=== PATIENT | male | born 1925 | race Caucasian/White ===

== ENCOUNTER 2016-02-27 13:30 | Day surgery (SDC) | payer MEDICARE ==
[~2016-02-27] VITALS: Ht 182.9 cm; Wt 79.4 kg
--- NOTE | 2016-02-27 08:39 | PCM.HPANE ---
Patient Data Surgeon Admitting Provider: Attending Provider:Latesha Perez MD Primary Care Physician:Joselo Davila MD Other Provider:Gabbie Carmichael Anesthesia Reason for Visit Dysphagia Ht/WT & BMI Body Mass Index Allergies Coded Allergies: No Known Allergies (Verified , 02/26/16) Past Anesthesia History Anesthesia History: Denies:: Anesthesia Reactions, Fam Anesthesia Reaction, Fam Malignant Hypertherm, Malignant Hyperthermia Diabetes History Hx Diabetes?: No MRSA MRSA: No Medications Blood Thinner: Coumadin Hypertension Medication: No Home Meds Incl Beta Zelalem: No Reported Medications Aspirin 325 Mg [id number] Mg PO DAILY #1 BOTTLE 02/27/16 Docusate Calcium (Stool Softener)240 Mg [id number] Mg PO BID PRN For Constipation 02/26/16 Diltiazem ER (Cartia XT)120 Mg Cap.er.22l729 Mg PO DAILY 06/26/15 [place] Carbonate 300 Mg [id number] Mg PO TID 02/23/14 Discontinued Reported Medications Multivitamin (Multivitamins)1 Each Capsule1 Each PO DAILY 02/26/16 Omeprazole (Prilosec)20 Mg Capcr20 Mg PO DAILY 06/26/15 Warfarin Sodium 5 Mg Tablet5 Mg PO DAILY 06/26/15 Acetaminophen 500 Mg Tablet1,000 Mg PO BID 06/26/15 Discontinued Scripts Hydrocortisone Acetate (Anucort-Hc)25 Mg Supp.rect25 Mg RECTAL BID #20 Prov:Gee Sauceda MD 06/29/15 History History of ENT Problems?: No HEENT History: Positive for:: Cataracts (Removed) Denies:: Dysphagia Sinus Problem Hx of Heart Problems?: Yes Cardiovascular History: Denies:: Cardiac Surgery Chest Pain Congestive Heart Failure Edema Heart Murmur Hypertension Irregular Heartbeat Pacemaker Thrombophlebitis Hx of Respiratory Problem?: No Respiratory History: Positive for:: Dyspnea (With exertion) Denies:: Asthma COPD Chest Surgery Emphysema Hemoptysis Pneumonia Tuberculosis Hx Neurologic Problems?: Yes Neurological History: Positive for:: CVA (Several TIA) Denies:: Alzheimer's Disease Dementia Dizziness Headaches Parkinson's Disease Seizures Hx of GI Problems?: Yes Gastrointestinal History: Positive for:: Gastroesphageal Reflux Gastrointestinal Bleeding (Bleeding Stomach Ulcer in the ) Denies:: Diverticulitis Heartburn Hepatitis Hiatal Hernia Rectal Bleeding Hx of Problems?: No Genitourinary History: Positive for:: Urinary Tract Infection Denies:: HX of Hemodialysis Kidney Stones HX of Peritoneal Dialysis: No Male Hx: Positive for:: Prostate Problems (Per pt. has prostate cancer) Denies:: Scrotal Mass Testicular Surgery Hx Musculoskeletal Problems?: Yes Musculoskeletal History: Positive for:: Back Injury (Lower back pain and hip pain) Denies:: Joint Replacement Musculoskeletal Trauma Hx of Psycho/Social Problems?: Yes Psycho Social History: Positive for:: Anxiety Hx Depression Denies:: Bipolar Disorder Suicide Attempt Hx Surgeries?: Yes (Sarai, bowel obstructions) Hx Any Other Health Problems?: No Other History: Positive for:: Cancer (Prostate cancer currently) Hospitalization (Ulcer, Bowel blockage, kidney stones) Denies:: Endocrine Disease Thyroid Disease History Blood Transfusions: Positive for:: Blood Transfusions Denies:: Blood Transfuse Reaction Hx Diabetes: No Hx Alcohol Use: Yes (1 beer weekly)Hx Substance Use: No Smoking Status: Former Smoker Have You Smoked inLast 12 mo: No Stop/Bang Treated for Sleep Apnea?: No Do You Have a CPAP Machine?: No Risk Assessment Category Category 1A: Patient has history of documented sleep apnea, and HAS NOT received any narcotic, sedative or anesthesia administration during this stay. Category 1B: Patient has history of documented sleep apnea, and HAS received any narcotic , sedative or anesthesia administration during this stay Category 2: Patient has SUSPECTED Obstructive Sleep Apnea, and HAS received any narcotic , sedative or anesthesia administration during this stay. Category 3: Patient has SUSPECTED Obstructive Sleep Apnea and HAS NOT received narcotic, sedative or anesthesia administration during this stay. Category 4: Outpatient in Procedural Areas with known sleep apnea or who screen positive for High Risk via the STOP/BANG questionnaire. Exam Exam General Appearance: Alert, Oriented X3, Cooperative, No Acute Distress HEENT/AIRWAY: MP 2 Lungs: Clear to Auscultation, Normal Air Movement Heart: Exam Unremarkable, Regular Rate/Rhythm, No Murmurs/Rubs/Gallops Plan Impression Patient chart reviewed, patient interviewed and anesthestic plan with risks, benefits, and alternatives discussed, and informed consent obtained. ASA Physical Status: ASA2 Mod Systemic Disease Anesthetic Plan: MAC Bene/Risks/Altern/Consents: Yes HP Complete Prior to Induction: Yes London Barry MD Feb 27, 2016 08:39
[~2016-02-27 13:30] MED LIST: DILT120C52 PO; DOCU240C41 PO; HYDR25SU10 RECTAL; LIT300 PO; Lactated Ringer's 1,000 ML IV ONE; MULT1CAP33 PO; OMPR20CCR PO; WARF5TAB7 PO
[2016-02-27] MEDS ORDERED: ASPI325T32 PO (14:38)
[2016-02-27 14:49] VITALS: BP 108/56; PULSE 93; O2SAT 93
[2016-02-27] MEDS ORDERED: Lactated Ringer's 1,000 ML IV SCH (15:05)
[2016-02-27] MEDS ORDERED: Ondansetron 2 mg/mL 2 mL Inj IVPUSH PRN (15:05)
[2016-02-27] MEDS ORDERED: MetoCLOpramide 5 mg/mL 2 mL Inj IVPUSH PRN (15:05)
[2016-02-27 15:41] VITALS: BP 92/60; PULSE 84; RESP 16; O2SAT 97
[2016-02-27 15:50] VITALS: BP 112/65; PULSE 75; RESP 16; O2SAT 98
[2016-02-27 16:00] VITALS: BP 120/65; PULSE 72; RESP 16; O2SAT 98
--- NOTE | 2016-02-27 16:06 | PCM.ANEP2 ---
Post Anesthesia Evaluation ASA/CMS Post Anesthesia VS in Patient's Normal Range?: Yes Resp Stable; Airway Patent?: Yes CV Function & Hydration Stable: Yes Mental Status Recovered?: Yes Pain control Satisfactory?: Yes N/V Control Satisfactory?: Yes Mina Ulloa MD Feb 27, 2016 16:06
--- NOTE | 2016-02-27 20:31 | ENDO ---
[address] [address] ENDOSCOPY PROCEDURE PATIENT: HARDEEP CAZARES : 1925 MR#: [id number] ADMIT: 02/27/2016 JOB ID: [id number] PROCEDURE: Esophagogastroduodenoscopy. INDICATION: Dysphagia. ANESTHESIA: Please see anesthesia report for details regarding ASA classification, Mallampati score, and medications. INSTRUMENT USED: GIF-H 180 J. PROCEDURE DETAILS: After informed consent was obtained, the patient was brought into the GI suite, where he was placed on oxygen via nasal cannula and monitored with continuous pulse oximeter, telemetry, and blood pressure monitoring. A time-out was performed; then, he was placed in the left lateral decubitus position and medications were administered for sedation. A bite block was placed. The standard EGD scope was inserted through the bite block and advanced under direct visualization to the second portion of duodenum without difficulty. FINDINGS: 1. Normal appearing duodenal bulb, first and second portion. 2. Normal appearing pylorus. 3. In the antrum there was erythema as well as punctate erosions consistent with gastritis. Multiple random biopsies were obtained. In the proximal antrum there was an approximately 6-7 mm flat polyp. The polyp had an appearance consistent with an inflammatory polyp. Multiple biopsies were obtained. 4. Retroflexed views in the gastric body revealed a normal-appearing cardia and fundus. A hiatal hernia was seen. 5. The diaphragmatic hiatus was at approximately 43 cm. The GE junction coincided at 41 cm. There was a Schatzki's ring at the GE junction. There was minimal resistance as we advanced the scope through the GE junction. We then sequentially dilated the Schatzki's ring, starting at 10 mm and increasing to 15 mm. Following this, there was no resistance encountered as the scope traversed the GE junction. 6. Multiple random biopsies were obtained in the mid esophagus secondary to the patient's complaint of dysphagia. IMPRESSION: 1. Gastritis in the antrum. 2. Antral polyp. 3. Hiatal hernia. 4. Schatzki's ring status post dilation. RECOMMENDATIONS: 1. If the dysphagia has resolved, take H2 blockers or Tums or PPI as needed. However, if dysphagia persists despite taking antacids daily, recommend followup in GI Clinic in 2-4 weeks. 2. Reflux precautions. 3. Avoid NSAIDs if able. 4. Chew food well. COMPLICATIONS: None. ESTIMATED BLOOD LOSS: Less than 5 mL.
--- NOTE | 2016-03-02 07:31 | PCM.ANEP1 ---
Post Anesthesia Phase 1 PACU Phase 1 Assessment Anesthetic Administered: MAC Level of Alertness: Awake, talking PETTY's with Equal Strength: Yes Pain: No Nausea or Vomiting: No Oxygen Delivery: Nasal Cannula Lungs: Clear to Auscultation, Normal Air Movement Dermatome Level: Full Sensation London Barry MD Mar 02, 2016 07:31
--- NOTE | 2016-03-02 10:48 | PATH ---
SURGICAL PATHOLOGY Attending Physician:Truong Arzola CASE STATUS: Signed Out PATIENT NAME: HARDEEP CAZARES PID: [id number] : 1925 DATE COLLECTED:02/27/2016 00:00 SPECIMEN: 1: Stomach, Antrum, Biopsy 2: Stomach, Antrum, Biopsy 3: Esophagus, Biopsy CLINICAL HISTORY: A: ANTRUM BIOPSY B: ANTRAL POLYP C: MID ESOPHAGUS FINAL DIAGNOSIS: 1.GASTRIC ANTRUM, BIOPSY: GASTRIC ANTRUM WITH MILD CHRONIC GASTRITIS. Negative for Helicobacter organisms. Negative for intestinal metaplasia. No evidence of dysplasia or malignancy. 2.GASTRIC ANTRAL POLYP: HYPERPLASTIC POLYP. No evidence of malignancy or dysplasia. Negative for intestinal metaplasia. 3.MID ESOPHAGUS, BIOPSY: THICKENED ESOPHAGEAL SQUAMOUS EPITHELIUM WITH CHRONIC ACTIVE ESOPHAGITIS. Negative for eosinophilic esophagitis. Negative for intestinal metaplasia. No evidence of malignancy or dysplasia. ICD10 code K20.9 D13.1 GROSS DESCRIPTION: The specimen is received in three formalin filled containers labeled with the patient's name. 1). The specimen is sublabeled "antrum" and consists of 4 portions of tissue which aggregate to 0.4 x 0.4 x 0.3 CM. The specimen is entirely submitted in cassette 1A. 2). The specimen is sublabeled "antrum polyp" and consists of 2 portions of tissue which aggregate to 0.3 x 0.3 x 0.2 CM. The specimen is entirely submitted in cassette 2A. 3). The specimen is sublabeled "mid esophagus" and consists of 3 portions of tissue which aggregate to 0.4 x 0.3 x 0.2 CM. The specimen is entirely submitted in cassettes 3A. 02/28/2016 [facility] MICRO DESCRIPTION: See diagnosis. ICD-9 CODES: CPT CODES: 1: 38122 2: 12823 3: 04509 Electronically Signed Out Ravi Dumas MD [facility] Pathology [facility], [place] [address] Technical component performed at [facility], [facility] [address], [place], [address]
[2016-05-27] MEDS ORDERED: ACET325T51 PO (20:08)
== END 2016-02-27 23:59 | disposition home or self-care (01) ==
LOC: END 13:30
PROVIDERS: ATTEND Internal Medicine Gastroenterology
DX: K22.2 Esophageal obstruction (principal); R13.10 Dysphagia, unspecified; K31.7 Polyp of stomach and duodenum; K44.9 Diaphragmatic hernia without obstruction or gangrene; K29.50 Unspecified chronic gastritis without bleeding; I48.0 Paroxysmal atrial fibrillation
CPT/HCPCS: 43239; 43249; J7120